=== PATIENT | female | born 1980 | race Caucasian/White ===

== ENCOUNTER 2016-09-11 04:50 | Inpatient (IN) | payer OTHER ==
[2016-09-11] MEDS: ELECTROLYTE-148 SOLN 1,000 ML IV SCH (04:50)
[2016-09-11] MEDS ORDERED: AMPICILLIN - 100 ML IVPB ONE (05:15)
[2016-09-11 05:51] LABS: BASOPHIL 0.6 % (0-2.0); MCH 28.6 pg (25.7-33.7); MCHC 32.8 g/dl (32.0-36.0); MEAN CELL VOLUME 87.2 fl (80-96); MEAN PLT VOLUME 10.3 fl (7.5-11.1); NEUTROPHILS 54.3 % (42.8-82.8); PLATELET COUNT 160 K/MM3 (134-434); RDW 14.3 % (11.6-15.6)
[2016-09-11 06:05] LABS: INR 0.86 (0.82-1.09); PROTHROMBIN TIME (PATIENT) 9.4 SEC (9.98-11.88)
[2016-09-11 06:07] LABS: ACTIVATED PTT 31.7 SECONDS (26.9-34.4)
[2016-09-11 06:22] VITALS: BMI 23.8
[2016-09-11 06:31] LABS: CALCIUM 9.3 mg/dL (8.5-10.1); COCKROFT - GAULT 144.789; CREATININE 0.5 mg/dL (0.55-1.02)
[2016-09-11] MEDS ORDERED: BISACODYL 10 MG SUPP.RECT RC PRN (06:43)
[2016-09-11] MEDS ORDERED: METHYLERGONOVINE MALEATE 0.2 MG/1 ML AMP IM PRN (06:43)
[2016-09-11] MEDS ORDERED: BENZOCAINE 28 GM HEMORRHOIDAL OINTMENT TP PRN (06:43)
[2016-09-11] MEDS ORDERED: WITCH HAZEL 50% (TUCKS) 40 PAD/JAR PAD TP PRN (06:43)
[2016-09-11] MEDS ORDERED: BENZOCAINE 20% 57 GM BOTTLE TP PRN (06:43)
[2016-09-11] MEDS: OXYTOCIN 20 UNITS in 0.9% NS 1,000 ML IV SCH (06:54)
--- NOTE | 2016-09-11 06:54 | HP ---
Past Medical History - Primary Care Physician PCP:: Marco Antonio Mathews - Admission Chief Complaint: 36yo P1 with spontaneous labor at EGA 39wk2d and SROM at 4:20am History of Present Illness: at EGA 39w2d and SROM since 4:20am and painful contractions since 4: 30am. is complicated by GDM A2 and Rh negative blood type. 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: Alzheimer's, CVA, Dementia, Migraine, Multiple Sclerosis, Peripheral Neuropathy, Parkinson's, Seizure, Syncope, TIA, Vertigo, Other Cardiovascular: No: AFIB, Aneurysm, Aortic Insufficiency, Aortic Stenosis, CAD, CHF, Deep Vein Thrombosis, HTN, Hyperlipdemia, ND, Mitral Insufficiency, Mitral Stenosis, Murmur, Pulmonary Hypertension, Other Pulmonary: No: Asthma, Bronchitis, Cancer, COPD, O2 Dependent, Pneumonia, Previously Intubated, Pulmonary Embolus, Pulmonary Fibrosis, Sleep Apnea, Other Gastrointestinal: No: Ascites, Cancer, Constipation, Crohn's Disease, Diverticulitis, Diverticulosis, Esophageal Varices, Gastritis, GERD, GI Bleed, Hemorrhoids, Hiatal Hernia, Inflamatory Bowel Disease, Irritable Bowel Disease, Pancreatitis, Peptic Ulcer Disease, Ulcerative Colitis, Other Hepatobiliary: No: Cirrhosis, Cholelithiasis, Cholecystitis, Choledocholithiasis , Hepatitis A, Hepatitis B, Hepatitis C, Other Renal/: No: Renal Failure, Renal Inusuff, BPH, Cancer, Hematuria, Hemodialysis , Neurogenic Bladder, Renal Calculi, UTI, Other ...: 2 ...Para: 1 ...Term: 1 ...: 0 ...Spon : 0 ...Induced : 0 ...Multiple Gestation: 0 ...LMP: 12/10/15 ... Weeks Gestation by Dates: 39.3 ...EDC by Dates: 09/15/16 ...EDC by Sono: 09/16/16 Heme/Onc: No: Anemia, B12 Deficiency, Bleeding Disorder, Cancer, Current Chemotherapy, Current Radiation Therapy, Hemochromatosis, Hypercoaguable State, Myeloproliferative Synd, Sickle Cell Disease, Sickle Cell Trait, Thrombocytopenia, Other Infectious Disease: Yes: Other (genital HSV- not at present) Psych: No: Addictions, Anxiety, Bipolar, Depression, Panic, Psychosis, Schizophrenia, Other Musculoskeletal: No: Bursitis, Chronic low back pain, Hemiparesis, Hemiplegia, Osteoarthritis, Paraplegia, Other Rheumatology: No: Fibromyalgia, Gout, Lupus, Rheumatoid Arthritis, Sarcoidosis, Vasculitis, Other ENT: No: Allergic Rhinitis, Sinusitis, Other Endocrine: No: Mchenry's Disease, Celine's Disease, Diabetes Insipidus, Diabetes Mellitus, Hyperparathyroidism, Hyperthyroidism, Hypothyroidism, Osteopenia, SIADH, Other Dermatology: No: Basal Cell, Cellulitis, Eczema, Melanoma, Psoriasis, Squamous Cell, Other - Past Surgical History Past Surgical History: Yes: None Hx Myomectomy: No Hx Transabdominal Cerclage: No - Smoking History Smoking history: Never smoked Have you smoked in the past 12 months: No - Alcohol/Substance Use Hx Alcohol Use: No History of Substance Use: reports: None - Social History Usual Living Arrangement: Yes: With Spouse, With Child ADL: Independent Occupation: information technology teacher History of Recent Travel: No Home Medications - Allergies Allergies/Adverse Reactions: Allergies Allergy/AdvReac Type Severity Reaction Status Date / Time No Known Drug Allergies Allergy Verified 01/24/13 08:47 - Home Medications Home Medications: Ambulatory Orders Pnv with Ca,No.71/Iron/FA [ Vitamin Tablet] 1 tab PO DAILY 01/24/13 Acetaminophen [Tylenol .Regular Strength -] 650 mg PO Q3H PRN #1 tablet Ibuprofen [Motrin -] 600 mg PO Q4H PRN #1 tablet 01/26/13 Family Disease History - Family Disease History Family History: Unremarkable Review of Systems Findings/Remarks: Well appearing - Review of Systems Constitutional: reports: No Symptoms Eyes: reports: No Symptoms HENT: reports: No Symptoms Neck: reports: No Symptoms Cardiovascular: reports: No Symptoms Respiratory: reports: No Symptoms Gastrointestinal: reports: No Symptoms Genitourinary: reports: No Symptoms Breasts: reports: No Symptoms Reported Musculoskeletal: reports: No Symptoms Integumentary: reports: No Symptoms Neurological: reports: No Symptoms Endocrine: reports: No Symptoms Hematology/Lymphatic: reports: No Symptoms Psychiatric: reports: No Symptoms Physical Exam - Maternity Vital Signs: Vital Signs Temperature 98 F 09/11/16 05:15 Pulse Rate 80 09/11/16 05:15 Respiratory Rate 20 09/11/16 05:15 Blood Pressure 139/77 09/11/16 05:15 O2 Sat by Pulse Oximetry (%) Constitutional: Yes: Well Nourished, No Distress, Calm Eyes: Yes: WNL, Conjunctiva Clear HENT: Yes: WNL, Atraumatic, Normocephalic Neck: Yes: WNL, Supple, Trachea Midline Cardiovascular: Yes: WNL, Regular Rate and Rhythm Lungs: Clear to auscultation, Normal air movement Breast(s): Yes: WNL - Abdominal Exam/OB Fundal Height: 39 Number of Fetuses: Single Presentation: Vertex Contractions: Yes Regularity: Regular Intensity: Mod/Strong Monitor Mode: External Heart Rate (range): 130 Heart Rate Location: Midline Category: I Accelerations: Uniform Decelerations: None - Vaginal Exam/OB Vaginal Bleediing: No Speculum Exam: No Dilatation (cm): 10 Amniotic Membrane Status: Leaking Nitrazine Test: Positive Amniotic Fluid: Yes: Clear Presentation: Vertex/Position Station: +3 - Physical Exam Musculoskeletal: Yes: WNL Extremities: Yes: WNL Edema: No Integumentary: Yes: WNL (No HSV lesions) Deep Tendon Reflex Grade: Normal +2 ...Motor Strength: WNL Psychiatric: Yes: WNL, Alert, Oriented - Labs Lab Results: CBC, BMP 09/11/16 05:25 09/11/16 05:25 Hemorrhage Risk Assessment - Risk Factors Medium Risk Factors: Yes: None High Risk Factors: Yes: None Risk Score: 1 Risk Level: Medium Risk Assessment/Plan 36yo P1 with spontaneous labor at EGA 39wk2d and SROM at 4:20am. The pt presented in active labor and progressed quickly. She delivered a live teresa girl w/o complications.
[2016-09-11 07:04] LABS: HIV 1 & 2 AB NEGATIVE; HIV 1 AGp24 NEGATIVE
--- NOTE | 2016-09-11 07:07 | PN ---
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
[2016-09-11] MEDS ORDERED: TUBERCULIN PPD 5 TU/0.1ML SYRINGE (IN PATIENT USE ONLY) ID ONE (08:00)
[2016-09-11] MEDS ORDERED: AMPICILLIN - 100 ML IVPB SCH (09:15)
[2016-09-11] MEDS: PRENATAL VITAMINS W/ FOLIC ACID TABLET (FP) PO SCH (11:13)
[2016-09-11] MEDS: IBUPROFEN 600 MG TABLET (FP) PO PRN (12:18)
[2016-09-11] MEDS: ACETAMINOPHEN 325 MG TABLET (FP) PO PRN (12:19)
[2016-09-12] MEDS: ACETAMINOPHEN 325 MG TABLET (FP) PO PRN ×2 (04:58→22:39)
[2016-09-12] MEDS: IBUPROFEN 600 MG TABLET (FP) PO PRN ×2 (04:59→22:40)
[2016-09-12 07:07] LABS: BASOPHIL 0.4 % (0-2.0); EOSINOPHIL 0.6 % (0-4.5); MCH 29.2 pg (25.7-33.7); MCHC 33.4 g/dl (32.0-36.0); MEAN CELL VOLUME 87.4 fl (80-96); MEAN PLT VOLUME 10.3 fl (7.5-11.1); NEUTROPHILS 72.3 % (42.8-82.8); PLATELET COUNT 142 K/MM3 (134-434); RDW 14.4 % (11.6-15.6); WHITE BLOOD COUNT 10.6 K/mm3 (4.0-10.0)
--- NOTE | 2016-09-12 09:43 | PN ---
Post Progress Note - Subjective Subjective: No complaints Type of Delivery: Vital Signs: Vital Signs Temperature 97.5 F L 09/12/16 08:48 Pulse Rate 61 09/12/16 08:48 Respiratory Rate 18 09/12/16 08:48 Blood Pressure 114/72 09/12/16 08:48 O2 Sat by Pulse Oximetry (%) Breast Exam: Yes: Soft, Cracked Nipples Uterus: Yes: Fundus Firm, Fundus below umbilicus, Non-tender Abdomen/GI: Yes: Abdomen soft, Passing flatus, Tolerating PO Lochia: Yes: Rubra Lochia, amount: Small Extremities: Yes: Calves non-tender Perineum: Yes: Intact Activity: Ambulating - Labs Labs: CBC WBC 10.6 K/mm3 (4.0-10.0) H D 09/12/16 06:30 RBC 4.13 M/mm3 (3.60-5.2) 09/12/16 06:30 Hgb 12.0 GM/dL (10.7-15.3) D 09/12/16 06:30 Hct 36.1 % (32.4-45.2) 09/12/16 06:30 MCV 87.4 fl (80-96) 09/12/16 06:30 MCHC 33.4 g/dl (32.0-36.0) 09/12/16 06:30 RDW 14.4 % (11.6-15.6) 09/12/16 06:30 Plt Count 142 K/MM3 (134-434) 09/12/16 06:30 MPV 10.3 fl (7.5-11.1) 09/12/16 06:30 Neutrophils % 72.3 % (42.8-82.8) D 09/12/16 06:30 Lymphocytes % 21.7 % (8-40) D 09/12/16 06:30 Monocytes % 5.0 % (3.8-10.2) 09/12/16 06:30 Eosinophils % 0.6 % (0-4.5) 09/12/16 06:30 Basophils % 0.4 % (0-2.0) 09/12/16 06:30 Assessment/Plan 36yo P2 s/p , doing well stable, afebrile. care instructions reviewed. Continue routine care. Ambulation encouraged Discharge instruction reviewed.
[2016-09-12] MEDS: PRENATAL VITAMINS W/ FOLIC ACID TABLET (FP) PO SCH (09:55)
[2016-09-12] MEDS: ELECTROLYTE-148 SOLN 1,000 ML IV SCH (15:36)
[2016-09-12] MEDS: OXYTOCIN 20 UNITS in 0.9% NS 1,000 ML IV SCH (15:37)
[2016-09-12] MEDS ORDERED: SENNOSIDES/DOCUSATE COMBO (SENNA PLUS) TABLET (UD) PO PRN (22:00)
--- NOTE | 2016-09-13 08:56 | PN ---
Post Progress Note - Subjective Subjective: 36 yo P2 now, s/p , no complains No night sweets, no cough, or blood in the sputum Post Day: 2 Type of Delivery: Vital Signs: Vital Signs Temperature 98.2 F 09/12/16 22:00 Pulse Rate 73 09/12/16 22:00 Respiratory Rate 18 09/12/16 22:00 Blood Pressure 127/79 09/12/16 22:00 O2 Sat by Pulse Oximetry (%) Breast Exam: Yes: Soft Uterus: Yes: Fundus Firm, Fundus @ umbilicus, Non-tender Abdomen/GI: Yes: Abdomen soft Lochia: Yes: Rubra Lochia, amount: Small Activity: Ambulating - Labs Labs: CBC WBC 10.6 K/mm3 (4.0-10.0) H D 09/12/16 06:30 RBC 4.13 M/mm3 (3.60-5.2) 09/12/16 06:30 Hgb 12.0 GM/dL (10.7-15.3) D 09/12/16 06:30 Hct 36.1 % (32.4-45.2) 09/12/16 06:30 MCV 87.4 fl (80-96) 09/12/16 06:30 MCHC 33.4 g/dl (32.0-36.0) 09/12/16 06:30 RDW 14.4 % (11.6-15.6) 09/12/16 06:30 Plt Count 142 K/MM3 (134-434) 09/12/16 06:30 MPV 10.3 fl (7.5-11.1) 09/12/16 06:30 Neutrophils % 72.3 % (42.8-82.8) D 09/12/16 06:30 Lymphocytes % 21.7 % (8-40) D 09/12/16 06:30 Monocytes % 5.0 % (3.8-10.2) 09/12/16 06:30 Eosinophils % 0.6 % (0-4.5) 09/12/16 06:30 Basophils % 0.4 % (0-2.0) 09/12/16 06:30 Assessment/Plan 36 yo P2 s/p VSS, Afibrile CXR neg 2012 Rh neg, s/p RhoGam Condoms for BC D/C home NPV for 6 wks RTO 6wks
[2016-09-13] MEDS: PRENATAL VITAMINS W/ FOLIC ACID TABLET (FP) PO SCH (10:26)
[2016-09-13 13:56] VITALS: BP 119/75; PULSE 81; TEMP 97.9
== END 2016-09-13 14:20 | disposition home or self-care (01) | DRG 775 ==
LOC: JDEL 04:50 → JLDR 05:15 → J3W 09:24
PROVIDERS: ADMIT Obstetrics & Gynecology; ATTEND Obstetrics & Gynecology
PROC: 0KQM0ZZ Repair Perineum Muscle, Open Approach (ICD-10-PCS; principal; 2016-09-11)
PROC: 10E0XZZ Delivery of Products of Conception, External Approach (ICD-10-PCS; 2016-09-11)
PROC: 3E0334Z Introduction of Serum, Toxoid and Vaccine into Peripheral Vein, Percutaneous Approach (ICD-10-PCS; 2016-09-11)
DX: O24.429 Gestational diabetes mellitus in childbirth, unspecified control (principal); O36.0930 Maternal care for other rhesus isoimmunization, third trimester, not applicable or unspecified; O70.1 Second degree perineal laceration during delivery; Z3A.39 39 weeks gestation of pregnancy; Z37.0 Single live birth
CPT/HCPCS: 36415; 59409; 71020-TC; 80048; 85025; 85461; 85610; 85730; 86593; 86850; 86900; 86901; 86999; 87389